=== PATIENT | male | born 1950 | race Caucasian/White ===

== ENCOUNTER 2020-03-10 23:15 | Inpatient (IN) | payer MEDICARE, OTHER ==
[~2020-03-10] VITALS: Ht 175.3 cm; Wt 95.3 kg
[2020-03-10] MEDS ORDERED: LORAZEPAM INJ 2 MG/ML VIAL IV ONE (23:30)
[2020-03-10] MEDS ORDERED: LORAZEPAM INJ 2 MG/ML VIAL ONE (23:49)
--- NOTE | 2020-03-10 23:59 | NUR ---
PT SENT FROM [facility] FOR AMS AND WEAKNESS. PT AAOX2, RESPIRATIONS EVEN AND UNLABORED ON RA W/ NAD NOTED. PT CONNECTED TO THE INSPECTOR MACHINE CUT GLASS AND POX. AWAITING FOR MD GUTHRIE
--- NOTE | 2020-03-11 00:04 | NUR ---
WIRE WRAPPING MACHINE OPERATOR AT BEDSIDE FOR BLOODDRAW.
[2020-03-11] MEDS ORDERED: LORAZEPAM INJ 2 MG/ML VIAL ONE ×2 (00:26→01:05)
[2020-03-11 00:30] LABS: BASOPHILS % (AUTO) 0.1 % (0.0-2.0); HEMATOCRIT 48 % (39-51); HEMOGLOBIN 15.1 g/dL (13.5-17.5); LYMPHOCYTES % (AUTO) 4.7 % (20.0-44.0); MEAN CORPUSCULAR HGB CONC 32 g/dl (31.0-36.0); MEAN CORPUSCULAR VOLUME 95 fL (80-96); MONOCYTES # (AUTO) 1.8 /CMM (0.1-1.30); MONOCYTES % (AUTO) 8.4 % (2.0-12.0); NEUTROPHILS % (AUTO) 86.8 % (43.0-81.0); PLATELET COUNT (AUTO) 363 /CMM (150-450); RED BLOOD CELL COUNT(AUTO) 5.08 MIL/uL (4.5-6.0); WHITE BLOOD COUNT (AUTO) 21.9 K/uL (4.3-11.0)
[2020-03-11] MEDS ORDERED: LORAZEPAM INJ 2 MG/ML VIAL IV ONE ×2 (00:30→01:30)
[2020-03-11] MEDS ORDERED: IV NS 0.9% 1,000 ML BAG IV ONE (00:30)
[2020-03-11 00:38] LABS: ALANINE AMINOTRANSFERASE 11 U/L (12-78); ALBUMIN 2.4 g/dL (3.4-5.0); ALCOHOL, BLOOD < 3 mg/dL (0-0); ALKALINE PHOSPHATASE 156 U/L (46-116); ASPARTATE AMINOTRANSFERASE 11 U/L (15-37); BILIRUBIN,DIRECT 1.3 mg/dL (0.0-0.2); BILIRUBIN,TOTAL 1.8 mg/dL (0.2-1.0); CALCIUM, SERUM 9.4 mg/dL (8.5-10.1); CARBON DIOXIDE 24 mmol/L (21-32); CHLORIDE 116 mmol/L (98-107); CREATININE 0.9 mg/dL (0.6-1.3); GLUCOSE 107 mg/dL (74-106); POTASSIUM 3.5 mmol/L (3.5-5.1); SODIUM SERUM 153 mmol/L (136-145); TOTAL PROTEIN, SERUM 6.9 g/dL (6.4-8.2); UREA NITROGEN, BLOOD 19 mg/dL (7-18)
[2020-03-11 00:41] LABS: ACETAMINOPHEN 0 ug/ml (10-30); SALICYLATE < 0.2 mg/dL (2.8-20.0)
--- NOTE | 2020-03-11 00:48 | NUR ---
COVID SWAB COLLECTED AND SENT TO THE LAB.
[2020-03-11] MEDS ORDERED: ACETAMINOPHEN 650 MG/SUPP.RECT RC ONE ×2 (00:57→01:00)
--- NOTE | 2020-03-11 01:03 | NUR ---
URINE COLLECTED. SENT TO LAB
--- NOTE | 2020-03-11 01:43 | NUR ---
PATIENT RETURNED FROM CT.
[2020-03-11 02:06] LABS: APPEARANCE,URINE CLEAR (CLEAR); BILIRUBIN,URINE MODERATE (NEGATIVE); BLOOD, URINE NEGATIVE Ery/uL (NEGATIVE); COLOR,URINE YELLOW (YELLOW); KETONES,URINE NEGATIVE (NEGATIVE); LEUKOCYTE ESTERASE ,URINE NEGATIVE (NEGATIVE); NITRITE, URINE NEGATIVE (NEGATIVE); PROTEIN,URINE TRACE mg/dl (NEGATIVE); UGLUCOSE NEGATIVE (NEGATIVE); UROBILINOGEN,URINE >=8.0 EU/dL (0.2)
[2020-03-11 02:17] LABS: BACTERIA,URINE Many /HPF (None Seen); RBC,URINE 0-2 /HPF (0-2)
[2020-03-11 02:18] LABS: SQUAMOUS EPITHELIAL CELL,UR Rare /HPF (None Seen)
--- NOTE | 2020-03-11 02:30 | NUR ---
ASSIGNED TO 202
--- NOTE | 2020-03-11 03:16 | NUR ---
DR. ADAN SPEAKING WITH DR. ALANIZ REGARDING ADMISSION
--- NOTE | 2020-03-11 03:18 | NUR ---
PATIENT'S RECTAL TEMPERATURE IS AT 100.4. MD IS NOTIFIED. ICE PACK APPLIED TO THE PATIENT.
[2020-03-11] MEDS ORDERED: ONDANSETRON HCL/PF 4 MG/2 ML VIAL IVP PRN (04:00)
--- NOTE | 2020-03-11 04:03 | NUR ---
REPORT GIVEN TO LEESA BOX FOR WES.
[2020-03-11 04:08] VITALS: BP 137/79
--- NOTE | 2020-03-11 04:15 | NUR ---
PATIENT TAKEN TO ASSIGNED ROOM.
[2020-03-11] MEDS: LORAZEPAM INJ 2 MG/ML VIAL IV PRN ×2 (05:00→20:54)
[2020-03-11] MEDS: IV D5/0.45 NACL 1,000 ML IV PRN ×2 (05:00→14:30)
--- NOTE | 2020-03-11 06:02 | NUR ---
rECIEVED AT 04:45 ALERT TO SELF, BUT ATTEMPTING TO GRAB AT THE NURSE AND SMILING, NO TEETH NO DENTURE MAKING GRUNTING NOISES, STATED HE HAD TO GO "pee" BUT WAS UNABLE TO TEXT THE md AND ASKED TO GET AN ORDER TO [facility] CATH WAITING FOR HIM TO ANSWER. PATIENT HAS A STAGE 2 ON THE COCCYS AND HIS IS DIRTY SKIN SCAB ON HIS SHINS AND ARMS DIRTY FEET AND 2+ EDEMA ON HIS FEET WILL MONITOR
[2020-03-11 06:23] VITALS: BP 137/79
--- NOTE | 2020-03-11 07:25 | NUR ---
RN NOTES RECEIVED PT IN BED, AWAKE, A/O X1, MUMBLES. PT ON SUPPLEMENTARY OXYGEN AT 2LPM VIA NC, WITH NO ACUTE RESPIRATORY DISTRESS NOTED. PT NOT EXHIBITING ANY PAIN OR DISCOMFORT AT THIS TIME. ON TELEMONITORING ST 110. IVF D5 1/2 NS AT TO RIGHT HAND G22, INTACT AND FLUID INFUSING WELL. PT KEPT COMFORTABLE. PT'S BED IN LOWEST, LOCKED POSITION WITH SRX3. CALL LIGHT KEPT WITHIN REACH. WILL CONTINUE PLAN OF CARE.
[2020-03-11] MEDS ORDERED: QUET25TA PO (07:48)
[2020-03-11] MEDS ORDERED: THIA100T88 PO (07:48)
[2020-03-11] MEDS ORDERED: APIX2.5T PO (07:48)
[2020-03-11] MEDS ORDERED: CARV3.122 PO (07:48)
[2020-03-11] MEDS ORDERED: ATOR10TA PO (07:48)
[2020-03-11] MEDS ORDERED: FOLI0.4T2 PO (07:48)
[2020-03-11] MEDS ORDERED: ASPI-1169 PO (07:48)
[2020-03-11] MEDS ORDERED: TAMS-12 PO (07:48)
[2020-03-11] MEDS ORDERED: DIVA500T2 PO (07:48)
[2020-03-11] MEDS: FOLIC ACID 1 MG TABLET PO SCH (09:00)
[2020-03-11] MEDS: THIAMINE HCL 100 MG TABLET PO SCH (09:00)
[2020-03-11] MEDS: PANTOPRAZOLE 40 MG VIAL IV SCH (09:19)
[2020-03-11] MEDS: ENOXAPARIN SODIUM 40 MG/0.4 ML DISP.SYRIN SQ SCH (09:20)
--- NOTE | 2020-03-11 10:50 | NUR ---
RN NOTES SEEN AND EVALUATED BY DR. SLAUGHTER/FREDDIE. PLANNING TO CHANGE THE IVF INFUSING BUT HE STATED HE'LL PUT THE ORDER IN HIMSELF.
--- NOTE | 2020-03-11 19:21 | NUR ---
RN NOTES PT REMAINS IN BED, AWAKE, A/O X1. PT ON SUPPLEMENTARY OXYGEN AT 2LPM VIA NC, WITH NO ACUTE RESPIRATORY DISTRESS NOTED. PT NOT EXHIBITING ANY PAIN OR DISCOMFORT AT THIS TIME. ON TELEMONITORING ST 117. IVF D5 1/2 NS AT TO RIGHT HAND G22, INTACT AND FLUID INFUSING WELL. PT KEPT COMFORTABLE. ALL NEEDS AND CARE ATTENDED. PT'S BED IN LOWEST, LOCKED POSITION WITH SRX3. CALL LIGHT KEPT WITHIN REACH. ENDORSED TO INCOMING NIGHT NURSE FOR WES.
--- NOTE | 2020-03-11 19:35 | NUR ---
SOIL CONSERVATION TEACHER OPENING NOTES PATIENT AWAKE IN BED. A/OX1; SPEECH GARBLED. ON 2L NC; NO S/S OF ACUTE RESPIRATORY; BREATHING IS EVEN AND UNLABORED; CONTINUOUS SPO2 READING 100%. NO S/S OF PAIN NOTED. TELE MONITOR READING SINUS TACH WITH BBBS AND PVCS, HEART RATE 113. IV PRESENT ON RIGHT HAND, SIZE 20, INTACT & PATENT WITH D5 1/2 NS RUNNING AT 100 ML/HR. CONTACT/DROPLET PRECAUTIONS IN PLACE FOR R/O COVID; RESULTS PENDING. SAFETY MEASURES IN PLACE AND PATIENT'S NEEDS MET. BED LOCKED, ALARM ON, SIDE RAILS X3, HOB ELEVATED, CALL LIGHT WITHIN REACH. WILL CONTINUE TO MONITOR.
[2020-03-11 20:00] VITALS: BP 136/55
--- NOTE | 2020-03-11 20:54 | NUR ---
FINANCIAL DIRECTOR NOTES PATIENT PULLING AT IV LINE/MACHINE AND TRYING TO GET OUT OF BED. UNABLE TO REDIRECT PATIENT; A/OX1 AND CONFUSED. PRN ATIVAN 1MG IV ADMINISTERED. VITAL SIGNS - BP: 136/55, HR: 115, SPO2 100%. CALL LIGHT WITHIN REACH. WILL CONTINUE TO MONITOR.
[2020-03-12] VITALS: BP 128/83
[2020-03-12] MEDS: IV D5/0.45 NACL 1,000 ML IV PRN (00:41)
[2020-03-12] MEDS: LORAZEPAM INJ 2 MG/ML VIAL IV PRN ×5 (03:11→23:07)
--- NOTE | 2020-03-12 03:11 | NUR ---
DISTRIBUTION SPEC NOTES PATIENT CONTINUING TO PULL AT IV AND CLIMB OUT OF BED. UNABLE TO REDIRECT PATIENT; A/OX1; CONFUSED AND AGITATED. PRN ATIVAN 1MG IV ADMINISTERED. SAFETY MEASURES IN PLACE AND PATIENT'S NEEDS MET. WILL CONTINUE TO MONITOR.
[2020-03-12 04:00] VITALS: BP 125/80
--- NOTE | 2020-03-12 06:37 | NUR ---
CLINICAL CONSULTANT CLOSING NOTES PATIENT AWAKE IN BED. A/OX1. ON 2L NC; NO S/S OF ACUTE RESPIRATORY; BREATHING IS EVEN AND UNLABORED; CONTINUOUS SPO2 READING 100%. NO S/S OF PAIN NOTED. TELE MONITOR READING SINUS TACH, HEART RATE 103. IV PRESENT ON LEFT FA, SIZE 22, INTACT & PATENT WITH D5 1/2 NS RUNNING AT 100 ML/HR. SAFETY MEASURES IN PLACE AND PATIENT'S NEEDS MET. BED LOCKED, ALARM ON, SIDE RAILS X3, HOB ELEVATED, CALL LIGHT WITHIN REACH. WILL ENDORSE TO DAY SHIFT RN PLAN OF CARE.
[2020-03-12 08:00] VITALS: BP 155/70
--- NOTE | 2020-03-12 08:00 | NUR ---
rn notes received patient in the bed on isolation ,tele [id number]. Patient a/o x1, irritable, confused, and restless, delirium. on o22lnc, total care. infusing D51/2 ns at 100 ml hr on left fa. patient NPO because of sedated, aspiration precaution monitoring. iv push mediation administered. Patient assist turn and reposition q 2 hr. call bel, and bed alarm on. will continued monitoring.
[2020-03-12] MEDS: PANTOPRAZOLE 40 MG VIAL IV SCH (08:22)
[2020-03-12] MEDS: ENOXAPARIN SODIUM 40 MG/0.4 ML DISP.SYRIN SQ SCH (08:23)
--- NOTE | 2020-03-12 08:23 | NUR ---
RN NOTES RECEIVED PATIENT IN THE BED, CONFUSED, IRRITABLE TRYING TO GET OUT OF BED, DELUSIONAL, ALCOHOL WITHDRAWAL, HARD TO FOLLOW DIRECTION, ADMINISTERED ATIVAN 1 MG/ML IV PUSH , V/S TAKEN BP 155/88, P-105, CALL LIGHT NEAR TO THE PATIENT BED ALARM ON, SAFETY PRECAUTION MAINTAINED ALL THE TIME.
[2020-03-12 08:28] LABS: BASOPHILS % (AUTO) 0.2 % (0.0-2.0); HEMATOCRIT 52 % (39-51); HEMOGLOBIN 16.2 g/dL (13.5-17.5); LYMPHOCYTES # (AUTO) 0.9 /CMM (0.8-4.8); LYMPHOCYTES % (AUTO) 3.9 % (20.0-44.0); MEAN CORPUSCULAR HGB CONC 31 g/dl (31.0-36.0); MEAN CORPUSCULAR VOLUME 94 fL (80-96); MONOCYTES # (AUTO) 1.9 /CMM (0.1-1.30); MONOCYTES % (AUTO) 8.5 % (2.0-12.0); NEUTROPHILS # (AUTO) 19.3 /CMM (1.8-8.9); NEUTROPHILS % (AUTO) 87.4 % (43.0-81.0); PLATELET COUNT (AUTO) 283 /CMM (150-450); RED BLOOD CELL COUNT(AUTO) 5.49 MIL/uL (4.5-6.0); WHITE BLOOD COUNT (AUTO) 22.1 K/uL (4.3-11.0)
[2020-03-12 08:48] LABS: ALBUMIN 2.2 g/dL (3.4-5.0); BILIRUBIN,TOTAL 1.8 mg/dL (0.2-1.0); CALCIUM, SERUM 9.3 mg/dL (8.5-10.1); CREATININE 0.8 mg/dL (0.6-1.3); MAGNESIUM 2.5 mg/dL (1.8-2.4); PHOSPHORUS 2.3 mg/dL (2.5-4.9); POTASSIUM 3.6 mmol/L (3.5-5.1); TOTAL PROTEIN, SERUM 6.8 g/dL (6.4-8.2)
[2020-03-12 09:00] LABS: THYROID STIMULATING HORMONE 4.205 uIU/mL (0.358-3.74)
[2020-03-12] MEDS: FOLIC ACID 1 MG TABLET PO SCH (09:00)
[2020-03-12] MEDS: THIAMINE HCL 100 MG TABLET PO SCH (09:00)
[2020-03-12] MEDS ORDERED: POTASSIUM PHOSPHATE MM 7.5 MMOL in IV NS 0.9% 100 ML IV SCH (13:00)
[2020-03-12] MEDS: IV D5W 1,000 ML IV SCH ×2 (13:11→23:02)
--- NOTE | 2020-03-12 14:00 | NUR ---
rn notes patient still sedated, easily get irritable, hitting. v/s wnl, aspiration precaution continued monitoring.
[2020-03-12 18:10] VITALS: BP 120/82
--- NOTE | 2020-03-12 18:14 | NUR ---
rn notes administered Ativan 1 mg /ml iv push for anxiety, trying get out of bed bp 120/82, p-112. continued monitoring.
--- NOTE | 2020-03-12 19:00 | NUR ---
RN NOTES PATIENT MORE CALM AT THIS TIME, STILL NPO, MEDICATION WERE ADMINISTERED FOR ANXIETY EFFECTIVE, TRYING TO GET OUT OF BED, DELUSIONAL, GETTING IRRITABLE EASILY. BED ALARM AND MIGUELITO LIGHT ON. ENDORSED ONCOMING NURSE FOLLOW WES.
--- NOTE | 2020-03-12 19:10 | NUR ---
HOOP CUTTER NOTES RECEIVED PT IN BED AND RESTING. PT CONFUSING. RESPIRATIONS EVEN AND UNLABORED WITH CONTINUOUS PULSE OX ON AT 100%. NO S/S OF PAIN AT THIS TIME. PT NOTED WITH LWRIST #22G PATENT AND INTACT INFUSING D5@100CC/HR. SAFETY MEASURES IN PLACE. PT NOTED WITH HEALING SCABS ON BILATERAL LEGS WELL REDNESS ON BILATERAL FEET. CALL LIGHT WITHIN REACH. WILL CONTINUE TO MONITOR.
--- NOTE | 2020-03-12 22:00 | NUR ---
rn telemetry notes attempted to take pictures, pt combative and hitting. will attempt again when less agitated. will continue to monitor.
--- NOTE | 2020-03-13 04:00 | NUR ---
telecommunication operator notes attempted to take photos and pt refused. will continue to monitor.
[2020-03-13 07:28] LABS: BASOPHILS # (AUTO) 0.1 /CMM (0.0-0.2); BASOPHILS % (AUTO) 0.7 % (0.0-2.0); HEMATOCRIT 50 % (39-51); HEMOGLOBIN 15.6 g/dL (13.5-17.5); LYMPHOCYTES # (AUTO) 1.2 /CMM (0.8-4.8); LYMPHOCYTES % (AUTO) 5.9 % (20.0-44.0); MEAN CORPUSCULAR HGB CONC 32 g/dl (31.0-36.0); MEAN CORPUSCULAR VOLUME 94 fL (80-96); MONOCYTES # (AUTO) 1.7 /CMM (0.1-1.30); MONOCYTES % (AUTO) 8.5 % (2.0-12.0); NEUTROPHILS # (AUTO) 17.5 /CMM (1.8-8.9); NEUTROPHILS % (AUTO) 84.9 % (43.0-81.0); PLATELET COUNT (AUTO) 198 /CMM (150-450); RED BLOOD CELL COUNT(AUTO) 5.29 MIL/uL (4.5-6.0); WHITE BLOOD COUNT (AUTO) 20.5 K/uL (4.3-11.0)
--- NOTE | 2020-03-13 07:38 | NUR ---
GLASS FITTER OPENING NOTES RECEIVED PATIENT IN BED, AWAKE, A/O X1, CONFUSED. PATIENT ON OXYGEN THERAPY AT 2 LPM VIA NASAL CANNULA; BREATHING IS EVEN AND UNLABORED; NO SOB NOTED. NO S/S OF PAIN SUCH FACIAL GRIMACING, MOANING OR GUARDING. LFA G # 22 IV ACCESS PRESENT AND INTACT RUNNING D5W @ 100 MLS/HR. SAFETY PRECAUTIONS IN PLACE; BED IN LOW POSITION AND LOCKED, RAILS UP X2, CALL LIGHT WITHIN REACH. WILL CONTINUE TO MONITOR PATIENT.
[2020-03-13 08:00] VITALS: BP 120/78
[2020-03-13 08:01] LABS: CREATININE 0.9 mg/dL (0.6-1.3); MAGNESIUM 2.6 mg/dL (1.8-2.4); PHOSPHORUS 3.1 mg/dL (2.5-4.9); POTASSIUM 3.1 mmol/L (3.5-5.1)
[2020-03-13] MEDS: THIAMINE HCL 100 MG TABLET PO SCH (09:00)
[2020-03-13] MEDS: FOLIC ACID 1 MG TABLET PO SCH (09:00)
[2020-03-13] MEDS: PANTOPRAZOLE 40 MG VIAL IV SCH (09:12)
[2020-03-13] MEDS: ENOXAPARIN SODIUM 40 MG/0.4 ML DISP.SYRIN SQ SCH (09:12)
[2020-03-13 09:31] LABS: BAND % (MANUAL) 2 % (0.0-5.0); LYMPHOCYTES % (MANUAL) 8 % (16-48); MONOCYTES % (MANUAL) 12 % (0-11.0); NEUTROPHILS % (MANUAL) 78 (42-76)
[2020-03-13] MEDS: IV D5W 1,000 ML IV PRN ×2 (09:52→19:59)
[2020-03-13] MEDS: POTASSIUM CL. PREMIX PERIPHER. 50 ML IV SCH ×4 (11:21→15:18)
[2020-03-13] MEDS: LORAZEPAM INJ 2 MG/ML VIAL IV PRN ×2 (14:12→18:21)
--- NOTE | 2020-03-13 17:00 | NUR ---
SALES LEDGER ADMINISTRATOR NOTES TRIED TO TAKE PHOTOS OF THE PATIENT. PATIENT COMBATIVE, THROWING FISTS, AND DOES NOT LET US TAKE PICS.
--- NOTE | 2020-03-13 18:40 | NUR ---
ASSOCIATE FINANCIAL ADVISOR NOTES PATIENTS HEART RATE 121. ALL OTHER VITALS ARE NORMAL; O2 IS 100, FLUIDS ARE RUNNING. ATIVAN GIVEN. PATIENT DENIES PAIN. MD NOTIFIED. WILL CONTINUE TO MONITOR
--- NOTE | 2020-03-13 19:15 | NUR ---
RAILWAY SIGNAL OPERATOR CLOSING NOTES PATIENT IN BED, AWAKE, A/O X1, CONFUSED DURING THE SHIFT. PATIENT ON OXYGEN THERAPY AT 2 LPM VIA NASAL CANNULA; BREATHING IS EVEN AND UNLABORED; NO SOB NOTED. PATIENT DENIES PAIN. GLOBAL COMPENSATION ANALYST WITH A CURRENT READING OF SINUS TACHY 113; MD AWARE. LFA G # 22 IV ACCESS PRESENT AND INTACT RUNNING D5W @ 100 MLS/HR. POTASSIUM REPLACED WITH 4 BAGS OF POTASSIUM. ALL NEEDS ATTENDED TO THROUGHOUT THE DAY. SAFETY PRECAUTIONS IN PLACE; BED IN LOW POSITION AND LOCKED, RAILS UP X2, CALL LIGHT WITHIN REACH. WILL ENDORSE TO MAJOR GIFTS DIRECTOR NURSE.
--- NOTE | 2020-03-13 19:45 | NUR ---
HYDRAULIC PRESS SERVICER OPENING NOTES RECEIVED PATIENT IN BED ALERT AND ORIENTED X 1 CONFUSED AND IRRITABLE, KEPT ON MOVING IN BED. BREATHING REGULAR AND UNLABORED ON OXYGEN AT 2L/MIN VIA NASAL CANNULA, LATEST SPO2 100%. LEFT FOREARM IV LINE SEEN WITH REDNESS AND SWELLING, REMOVED AND APPLIED DRY DRESSING. ON CARDIAC MONITORING WITH SINUS TACHYCARDIA AT 114bpm. NO S/S OF PAIN/DISCOMFORT NOTED AT THIS TIME. BED LOW AND LOCKED ON SEMI FOWLERS POSITION, CALL LIGHT IN REACH. BED ALARM ON. WILL CONTINUE TO MONITOR.
[2020-03-13] MEDS: PIPERACILLIN /TAZOBACTAM 3.375 G in IV D5W 50 ML IV SCH (19:58)
[2020-03-13 20:00] VITALS: BP 124/68
--- NOTE | 2020-03-13 20:00 | NUR ---
FLAT SHEET MAKER NOTES IV LINE REINSERTED ON RIGHT FOREARM G 22, FLUSHING WELL WITH GOOD BLOOD BACK FLOW. WILL CONTINUE TO MONITOR.
[2020-03-14] VITALS: BP 142/68
[2020-03-14] MEDS: LORAZEPAM INJ 2 MG/ML VIAL IV PRN ×3 (01:41→20:05)
[2020-03-14] MEDS: PIPERACILLIN /TAZOBACTAM 3.375 G in IV D5W 50 ML IV SCH ×5 (01:41→23:59)
[2020-03-14 04:00] VITALS: BP 126/71
--- NOTE | 2020-03-14 05:05 | NUR ---
ORTHOPEDIC PODIATRIST NOTES IV ZOSYN DOSE FOR 6AM NOT GIVEN, FREQUENCY TIME CHANGED BY PHARMACY. LAST DOSE INFUSED AT 2AM NEXT DOSE DUE 12NOON. WILL ENDORSE ACCORDINGLY.
[2020-03-14] MEDS: IV D5W 1,000 ML IV PRN ×2 (06:32→19:07)
--- NOTE | 2020-03-14 06:55 | NUR ---
PICTURE FRAME MAKER CLOSING NOTES PATIENT IN BED ALERT AND ORIENTED X 1. AFEBRILE WITH NO S/S OF DISTRESS OBSERVED. RIGHT FOREARM G22 IV LINE PATENT AND INFUSING WELL. MAINTAINED ON CARDIAC MONITORING WITH SINUS TACHYCARDIA AT 110bpm. NO S/S OF PAIN/DISCOMFORT NOTED THE WHOLE SHIFT. BED LOW AND LOCKED ON SEMI FOWLERS POSITION, CALL LIGHT IN REACH. BED ALARM ON. WILL ENDORSE TO MORNING SHIFT FOR WES.
--- NOTE | 2020-03-14 07:30 | NUR ---
RN OPENING NOTES RECEIVED PATIENT IN BED ALERT AND ORIENTED X 1. VERY CONFUSED. MUMBLES. NOTED TO BE VERY RESTLESS, HE MOVES AROUND A LOT IN BED. AND UPON ROUNDS, HE WAS GRABBING THE IV POLE AND ATTEMPTING TO PULL OUT THE IV LINE. PROVIDED PT WITH A CALM ENVIRONMENT. AND REPOSITIONED FOR COMFORT. PT IS AFEBRILE WITH NO S/S OF DISTRESS OBSERVED SATURATING WELL ON 2L OF O2 VIA NC. IV ACCESS NOTED ON RIGHT FOREARM G22 IV LINE PATENT AND INFUSING WELL. NO S/S OF INFECTION OR INFILTRATION NOTED. MAINTAINED ON CARDIAC MONITORING WITH SINUS TACHYCARDIA AT 1.8bpm. NO S/S OF PAIN/DISCOMFORT NOTED. SAFETY PRECAUTIONS IN PLACE. BED LOW AND LOCKED ON SEMI FOWLERS POSITION, CALL LIGHT IN REACH. BED ALARM ON. WILL CONT TO MONITOR
[2020-03-14 08:00] VITALS: BP 121/65
[2020-03-14] MEDS: PANTOPRAZOLE 40 MG VIAL IV SCH (08:11)
[2020-03-14] MEDS: ENOXAPARIN SODIUM 40 MG/0.4 ML DISP.SYRIN SQ SCH (08:13)
[2020-03-14] MEDS: THIAMINE HCL 100 MG TABLET PO SCH (08:14)
[2020-03-14] MEDS: FOLIC ACID 1 MG TABLET PO SCH (08:14)
[2020-03-14 09:28] LABS: BILIRUBIN,TOTAL 1.9 mg/dL (0.2-1.0); CALCIUM, SERUM 8.2 mg/dL (8.5-10.1); CREATININE 1.2 mg/dL (0.6-1.3); MAGNESIUM 2.4 mg/dL (1.8-2.4); PHOSPHORUS 3.5 mg/dL (2.5-4.9); TOTAL PROTEIN, SERUM 6.4 g/dL (6.4-8.2)
[2020-03-14 09:51] LABS: BASOPHILS # (AUTO) 0.1 /CMM (0.0-0.2); BASOPHILS % (AUTO) 0.6 % (0.0-2.0); HEMATOCRIT 47 % (39-51); HEMOGLOBIN 14.9 g/dL (13.5-17.5); LYMPHOCYTES # (AUTO) 0.8 /CMM (0.8-4.8); LYMPHOCYTES % (AUTO) 4.3 % (20.0-44.0); MEAN CORPUSCULAR HGB CONC 32 g/dl (31.0-36.0); MEAN CORPUSCULAR VOLUME 93 fL (80-96); MONOCYTES # (AUTO) 1.3 /CMM (0.1-1.30); MONOCYTES % (AUTO) 6.4 % (2.0-12.0); NEUTROPHILS # (AUTO) 17.2 /CMM (1.8-8.9); NEUTROPHILS % (AUTO) 88.7 % (43.0-81.0); PLATELET COUNT (AUTO) 146 /CMM (150-450); RED BLOOD CELL COUNT(AUTO) 5.07 MIL/uL (4.5-6.0); WHITE BLOOD COUNT (AUTO) 19.5 K/uL (4.3-11.0)
[2020-03-14] MEDS: ASPIRIN 81 MG TAB.CHEW PO SCH (10:00)
[2020-03-14] MEDS: POTASSIUM CL. PREMIX PERIPHER. 50 ML IV SCH ×2 (10:14→11:16)
--- NOTE | 2020-03-14 10:39 | NUR ---
WOUND CARE CONSULT: REVIEWED CHART, NURSING DOCOMENTATION AND PHOTOS WHICH INDICATE FULL THICKNESS SACRAL WOUND PRESENT ON ADMISSION. RECOMMEND SURGICAL CONSULT. DR MONROE NOTIFIED OF CONSULT REQUEST. ISOFLEX LOW AIRLOSS BED TO BE PLACED. RECOMMENDATIONS MADE FOR SKIN PROTECTION. DISCUSSED WITH NURSING STAFF. MD IN AGREEMENT WITH PLAN OF CARE.
[2020-03-14] MEDS ORDERED: Z GUARD REMEDY 2 OZ OINT TP PRN (11:00)
--- NOTE | 2020-03-14 11:00 | NUR ---
SWALLOW EVAL ST WA HERE TO DO SWALLOW EVAL. HOWEVER, PT DID NOT PASS D/T SEVERE CONFUSION PER ST
--- NOTE | 2020-03-14 11:10 | NUR ---
LABS NOTIFIED ADRIAN KLINE REGARDING LABS, CBC, CMP AND PROCALCITONIN RESULTS. SAID SHE WILL LOOK AT IT. NNO GIVEN.
[2020-03-14 12:00] VITALS: BP 101/67
--- NOTE | 2020-03-14 12:15 | NUR ---
CHEST XRAY RELAYED CHEST XRAY RESULTS TO ADRIAN KLINE. NNO GIVEN.
[2020-03-14] MEDS: Z GUARD REMEDY 2 OZ OINT TP SCH (12:28)
[2020-03-14 12:53] LABS: LYMPHOCYTES % (MANUAL) 5 % (16-48); MONOCYTES % (MANUAL) 7 % (0-11.0); NEUTROPHILS % (MANUAL) 88 (42-76)
[2020-03-14 15:14] LABS: URINE TOTAL PROTEIN 45.7 mg/dL (0-11.9)
[2020-03-14 16:00] VITALS: BP 107/73
--- NOTE | 2020-03-14 16:00 | NUR ---
TRANSFER TO [facility] [[email or web address]] YFN BOX WILL BE ASSUMING CARE FOR THIS PT. PT IN STABLE CONDITION. REPORT GIVEN TO YFN BOX WHO WILL BE MOVING PT TO [facility] [[email or web address]]
--- NOTE | 2020-03-14 16:01 | NUR ---
PATIENT IN STABLE CONDITION. TRANSFERRED FROM 202 TO 325-2. NOT IN ANY FORM OF DISTRESS. NO SOB. NO S/S OF PAIN OR DISCOMFORT AT THIS TIME. ON CONT PULSE OX MONITOR, VSS. IV ACCESS INTACT AND PATENT. KEPT PATIENT SAFE AND COMFORTABLE. BED IN LOW/LOCKED POSITION. SIDERAILS UP, CALL LIGHT IN REACH. BED ALARM ON. WILL CONT TO MONITOR ACCORDINGLY.
[2020-03-14] MEDS: CARVEDILOL 3.125 MG TABLET PO SCH (17:00)
[2020-03-14] MEDS ORDERED: APIXABAN 2.5 MG TABLET PO SCH (17:00)
[2020-03-14] MEDS ORDERED: HYDROGEL DRESSING 90 GM TUBE TP SCH (18:30)
--- NOTE | 2020-03-14 18:56 | NUR ---
PATIENT IN STABLE CONDITION. ALL NEEDS ATTENDED AND PROVIDED. KEPT PATIENT SAFE AND COMFORTABLE. BED IN LOW/LOCKED PSOTIION. SIDERAILS UP. BED ALARM ON. CALL LIGHT IN REACH. WILL ENDORSED TO NIGHT NURSE ACCORDINGLY.
[2020-03-14 19:56] LABS: CREATININE 1.3 mg/dL (0.6-1.3)
--- NOTE | 2020-03-14 20:15 | NUR ---
TELERN RESTLESS, TRASHING SELF AROUND BED, TRYING TO GET OUT OF BED. V/S STABLE. ATIVAN 1MG IVP ADMINISTERED. ON CONTINOUS PULSE OX SATURATING 100%. SR TO ST ON THE MONITOR. CLOSELY WATCHED.
[2020-03-14] MEDS: HYDROGEL DRESSING 90 GM TUBE TP SCH (20:33)
[2020-03-14] MEDS: DIVALPROEX SODIUM 500 MG TABLET.DR PO SCH (20:33)
[2020-03-14] MEDS: QUETIAPINE FUMARATE 100 MG TABLET PO SCH (20:34)
--- NOTE | 2020-03-14 20:34 | NUR ---
TELERN HS CARE DONE, SACRAL WOUND CARE DONE, CURASOL GEL OVER AREA COVERED WITH MEPILEX. REPOSITIONED FOR COMFORT. CONTINUED MONITORING.
[2020-03-14 20:54] VITALS: BP 116/68
[2020-03-15 00:19] VITALS: BP 104/63
--- NOTE | 2020-03-15 01:35 | NUR ---
TELERN AWAKE, TRYING TO GET OOB. FREQ REPOSITIONED. UNABLE TO FOLLOW INSTRUCTIONS. TOTALLY BATHED, KEPT COMFORTABLE.PRESENT IVF INFUSING WELL VIA RIGHT FA. CONTINUED
--- NOTE | 2020-03-15 04:00 | NUR ---
TELERN EASILY DESATURATES WHEN RESTLESS. MAINTAINED 02 AT 2 TO 3 L VIA NC. ATIVAN 1 MG IVP ADMINISTERED. TOTAL BEDCHANGE VOIDED LARGE AMOUNT OF CLEAR URINE. REPOSITIONED, KEPT DRY AND CLEAN. FREQ REORIENTED.
[2020-03-15] MEDS: LORAZEPAM INJ 2 MG/ML VIAL IV PRN ×2 (04:08→11:58)
--- NOTE | 2020-03-15 04:40 | NUR ---
TELERN SLEEPING APPEARS COMFORTABLE SATURATION 100% FOR NOW.
[2020-03-15 04:50] VITALS: BP 114/84
[2020-03-15] MEDS: PIPERACILLIN /TAZOBACTAM 3.375 G in IV D5W 50 ML IV SCH ×4 (06:11→23:53)
[2020-03-15] MEDS: IV D5W 1,000 ML IV PRN ×2 (06:27→21:21)
--- NOTE | 2020-03-15 06:41 | NUR ---
TELERN REMAINS UNCHANGED, IVF CONTINUED. FOR REPEAT SWALLOW EVAL TODAY. NPO
--- NOTE | 2020-03-15 07:34 | NUR ---
DEGREASING WHEEL OPERATOR OPENING NOTES BEDSIDE ENDORSEMENT DONE. PATIENT IS IN BED SLEEPING, RESPONSIVE TO VERBAL AND TACTILE SENSATIONS. A/O X1. NOT IN ACUTE DISTRESS. BREATHING EVEN AND UNLABORED. ON TELE MONITORING, SR WITH PVC, HR IN THE MID 80'S, NO CARDIAC DISTRESS NOTED. IV SITE ON RFA INTACT AND PATENT. ON NPO STATUS. SAFETY PRECAUTIONS IN PLACE: BED ON LOWEST AND LOCKED POSITION, SR UP X2, CALL LIGHT W/IN REACH. WILL CONTINUE TO MONITOR.
[2020-03-15 08:00] VITALS: BP 122/69
[2020-03-15 08:37] LABS: BASOPHILS % (AUTO) 0.1 % (0.0-2.0); EOSINOPHILS % (AUTO) 0.3 % (0.0-6.0); HEMATOCRIT 44 % (39-51); HEMOGLOBIN 13.8 g/dL (13.5-17.5); LYMPHOCYTES # (AUTO) 0.8 /CMM (0.8-4.8); LYMPHOCYTES % (AUTO) 4.8 % (20.0-44.0); MEAN CORPUSCULAR HGB CONC 32 g/dl (31.0-36.0); MEAN CORPUSCULAR VOLUME 94 fL (80-96); MONOCYTES % (AUTO) 5.8 % (2.0-12.0); NEUTROPHILS # (AUTO) 14.9 /CMM (1.8-8.9); PLATELET COUNT (AUTO) 127 /CMM (150-450); RED BLOOD CELL COUNT(AUTO) 4.67 MIL/uL (4.5-6.0); WHITE BLOOD COUNT (AUTO) 16.8 K/uL (4.3-11.0)
[2020-03-15] MEDS: THIAMINE HCL 100 MG TABLET PO SCH (09:00)
[2020-03-15] MEDS: TAMSULOSIN 0.4 MG CAP.SR.24H PO SCH (09:00)
[2020-03-15] MEDS: CARVEDILOL 3.125 MG TABLET PO SCH ×2 (09:00→16:54)
[2020-03-15] MEDS: ATORVASTATIN 10 MG TABLET PO SCH (09:00)
[2020-03-15] MEDS: FOLIC ACID 1 MG TABLET PO SCH (09:00)
[2020-03-15] MEDS: ASPIRIN 81 MG TAB.CHEW PO SCH (09:00)
[2020-03-15 09:41] LABS: CALCIUM, SERUM 8.6 mg/dL (8.5-10.1); CREATININE 1.4 mg/dL (0.6-1.3); MAGNESIUM 2.4 mg/dL (1.8-2.4); PHOSPHORUS 3.4 mg/dL (2.5-4.9)
[2020-03-15 09:48] LABS: POTASSIUM 2.7 mmol/L (3.5-5.1)
[2020-03-15] MEDS: Z GUARD REMEDY 2 OZ OINT TP SCH (09:57)
[2020-03-15] MEDS: HYDROGEL DRESSING 90 GM TUBE TP SCH (09:59)
[2020-03-15] MEDS: ENOXAPARIN SODIUM 40 MG/0.4 ML DISP.SYRIN SQ SCH (10:00)
[2020-03-15] MEDS: PANTOPRAZOLE 40 MG VIAL IV SCH (10:00)
--- NOTE | 2020-03-15 10:36 | NUR ---
RN NOTES RECEIVED CRITICAL RESULT FOR POTASSIUM 2.7 FROM LAB [facility] MIRANDA. INFORMED DR. VENEGAS, W/ ORDER TO GIVE 60MEQ OF POTASSIUM PO.
--- NOTE | 2020-03-15 10:46 | NUR ---
RN NOTES PT HAD SWALLOW REEVALUATION TODAY BY ST. PT PLACED ON PUREED DIET WITH HONEY THICK LIQUIDS BY ST. WILL MAINTAIN ASPIRATION PRECAUTIONS. WILL CONTINUE TO MONITOR PT.
[2020-03-15] MEDS ORDERED: POTASSIUM CHLORIDE 20 MEQ POWDER PACKET PO ONE (11:00)
[2020-03-15 12:00] VITALS: BP 132/75
--- NOTE | 2020-03-15 12:04 | NUR ---
RN NOTES PT NOTED VERY RESTLESS AND TRYING TO GET OUT OF BED. ALL SAFETY MEASURES KEPT IN PLACE. PRN ATIVAN 1MG/0.5ML IVP ADMINISTERED @ 1158. WILL CONTINUE TO MONITOR PT.
--- NOTE | 2020-03-15 15:05 | NUR ---
RN NOTES NOTED PATIENT'S IV ON RIGHT HAND TO BE LEAKING. NEW PERIPHERAL IV INSERTED ON LEFT HAND G#22, INTACT, PATENT, AND FLUSHING WELL. PREVIOUS SITE REMOVED. WILL CONTINUE TO MONITOR.
[2020-03-15 16:00] VITALS: BP 122/69
--- NOTE | 2020-03-15 18:13 | NUR ---
RN NOTES ULTRASOUND OF KIDNEYS DONE. US TECH NOTED PATIENT'S BLADDER W/ RESIDUAL OF 1600ML. DR. ALONZO MADE AWARE W/ ORDER FOR IN AND OUT STRAIGHT CATHETERIZATION X1. PATIENT VOIDED PRIOR CATHETERIZATION. PROCEDURE DONE INDICATED, W/ OUTPUT OF 800ML. WILL CONTINUE TO MONITOR.
--- NOTE | 2020-03-15 18:19 | NUR ---
RN NOTES PATIENT WAS SEEN BY ABHIJEET MCCARTHY NP, W/ ORDER FOR BLADDER SCAN Q8HRS AND STRAIGHT CATH NEEDED FOR RESIDUAL OF 300CC AND ABOVE, NOTED. WILL CONTINUE TO MONITOR.
--- NOTE | 2020-03-15 18:34 | NUR ---
SPRAY PAINTING MACHINE OPERATOR CLOSING NOTES PATIENT IN BED AWAKE AT THIS TIME. A/O X1, CONFUSED BUT RESPONSIVE TO VERBAL STIMULI. ON 02 VIA N/C @ 2LPM, TOLERATING WELL, BREATHING EVEN AND UNLABORED. ON TELE MONITORING, SR WITH PVC, HR IN THE 80'S, NO CARDIAC DISTRESS NOTED. IV ACCESS ON LEFT HAND G#22 INTACT AND PATENT. PT TURNED AND REPOSITION q2HRS AND PRN. ALL NEEDS AND CARE PROVIDED WELL. SAFETY PRECAUTIONS IN PLACE: BED ON LOWEST AND LOCKED POSITION, SR UP X2, CALL LIGHT W/IN REACH. WILL ENDORSE CONTINUITY OF CARE TO NIGHT NURSE.
[2020-03-15 18:39] LABS: CREATININE, URINE 38.8 MG/DL (30.0-125.0); URINE TOTAL PROTEIN 27.6 mg/dL (0-11.9)
[2020-03-15 18:55] LABS: APPEARANCE,URINE CLEAR (CLEAR); BILIRUBIN,URINE NEGATIVE (NEGATIVE); BLOOD, URINE SMALL Ery/uL (NEGATIVE); COLOR,URINE YELLOW (YELLOW); KETONES,URINE NEGATIVE (NEGATIVE); LEUKOCYTE ESTERASE ,URINE TRACE (NEGATIVE); NITRITE, URINE NEGATIVE (NEGATIVE); PROTEIN,URINE NEGATIVE (NEGATIVE); UGLUCOSE NEGATIVE (NEGATIVE)
[2020-03-15 19:01] LABS: BACTERIA,URINE Few /HPF (None Seen); RBC,URINE 0-2 /HPF (0-2); SQUAMOUS EPITHELIAL CELL,UR 0-2 /HPF (None Seen); URINE AMORPHOUS URATE Few /HPF (None Seen)
--- NOTE | 2020-03-15 19:40 | NUR ---
HAND MOLDER AND CASTER OPENING NOTES RECEIVED PATIENT IN BED ALERT AND ORIENTED X 1 CONFUSED BUT VERBALLY RESPONSIVE. BREATHING REGULAR AND UNLABORED ON OXYGEN AT 2L/MIN VIA NASAL CANNULA, LATEST SPO2 100%LEFT HAND G22 IV LINE INTACT AND PATENT, INFUSING WELL WITH NO BLEEDING OR S/S OF INFILTRATION NOTED. ON CARDIAC MONITORING WITH NORMAL SINUS RHYTHM AT 95bpm. NO S/S OF PAIN/DISCOMFORT NOTED AT THIS TIME. BED LOW AND LOCKED ON SEMI FOWLERS POSITION, CALL LIGHT IN REACH. BED ALARM ON. WILL CONTINUE TO MONITOR.
[2020-03-15 19:43] LABS: EOSINOPHIL,URINE None Seen
[2020-03-15 20:00] VITALS: BP 100/58
[2020-03-15] MEDS: QUETIAPINE FUMARATE 100 MG TABLET PO SCH (21:03)
[2020-03-15] MEDS: DIVALPROEX SODIUM 500 MG TABLET.DR PO SCH (21:03)
[2020-03-16] VITALS: BP 106/70
[2020-03-16 04:00] VITALS: BP 113/73
--- NOTE | 2020-03-16 06:00 | NUR ---
PLASTIC BOAT PATCHER NOTES BLADDER SCANNED FOR URINARY RETENTION, NOTED WITH >999ml's URINE. STRAIGHT CATHETERIZATION DONE WITH OUTPUT OF 900mls TAKEN OUT. WILL CONTINUE TO MONITOR.
[2020-03-16] MEDS: PIPERACILLIN /TAZOBACTAM 3.375 G in IV D5W 50 ML IV SCH (06:09)
--- NOTE | 2020-03-16 06:30 | NUR ---
PROOFING MACHINE OPERATOR CLOSING NOTES PATIENT IN BED ALERT AND ORIENTED X 1-2. AFEBRILE WITH NO S/S OF DISTRESS OBSERVED. LEFT HAND G22 IV LINE PATENT AND INFUSING WELL. MAINTAINED ON CARDIAC MONITORING WITH NSR/SINUS TACHYCARDIA. NO S/S OF PAIN/DISCOMFORT NOTED THE WHOLE SHIFT. BED LOW AND LOCKED ON SEMI FOWLERS POSITION, CALL LIGHT IN REACH. BED ALARM ON. WILL ENDORSE TO MORNING SHIFT FOR WES.
--- NOTE | 2020-03-16 07:25 | NUR ---
ms rn received on bed, awake,alert,oriented x 1,patient is confuse,respirations even and unlabred,no sob noted,no s/s of pain at this time,will monitor patient's condition.
[2020-03-16 07:53] LABS: CALCIUM, SERUM 8.9 mg/dL (8.5-10.1); CREATININE 1.8 mg/dL (0.6-1.3); MAGNESIUM 2.5 mg/dL (1.8-2.4); PHOSPHORUS 3.4 mg/dL (2.5-4.9); POTASSIUM 3.1 mmol/L (3.5-5.1)
[2020-03-16 08:00] VITALS: BP 123/65
[2020-03-16 08:20] LABS: BASOPHILS % (AUTO) 0.2 % (0.0-2.0); EOSINOPHILS % (AUTO) 0.6 % (0.0-6.0); HEMATOCRIT 46 % (39-51); HEMOGLOBIN 14.3 g/dL (13.5-17.5); LYMPHOCYTES # (AUTO) 1.1 /CMM (0.8-4.8); LYMPHOCYTES % (AUTO) 7.4 % (20.0-44.0); MEAN CORPUSCULAR HGB CONC 31 g/dl (31.0-36.0); MEAN CORPUSCULAR VOLUME 94 fL (80-96); MONOCYTES # (AUTO) 1.1 /CMM (0.1-1.30); MONOCYTES % (AUTO) 7.3 % (2.0-12.0); NEUTROPHILS # (AUTO) 13.2 /CMM (1.8-8.9); NEUTROPHILS % (AUTO) 84.5 % (43.0-81.0); PLATELET COUNT (AUTO) 124 /CMM (150-450); RED BLOOD CELL COUNT(AUTO) 4.89 MIL/uL (4.5-6.0); WHITE BLOOD COUNT (AUTO) 15.6 K/uL (4.3-11.0)
--- NOTE | 2020-03-16 08:34 | NUR ---
ms pradhan due meds given, lise held for now, b/p 153/67,will recheck later. Addendum: 03/16/20 at 0836 by KENYON BLOOD RN disregard notes, wrong documentation.
[2020-03-16] MEDS: HYDROGEL DRESSING 90 GM TUBE TP SCH (09:00)
--- NOTE | 2020-03-16 09:20 | NUR ---
ms rn swallow test done w/ speech therapy, due meds given, crushed, barely tolerated.
[2020-03-16] MEDS: ATORVASTATIN 10 MG TABLET PO SCH (10:25)
[2020-03-16] MEDS: TAMSULOSIN 0.4 MG CAP.SR.24H PO SCH (10:25)
[2020-03-16] MEDS: PANTOPRAZOLE 40 MG VIAL IV SCH (10:25)
[2020-03-16] MEDS: FOLIC ACID 1 MG TABLET PO SCH (10:25)
[2020-03-16] MEDS: CARVEDILOL 3.125 MG TABLET PO SCH ×2 (10:26→17:42)
[2020-03-16] MEDS: THIAMINE HCL 100 MG TABLET PO SCH (10:28)
[2020-03-16] MEDS: ASPIRIN 81 MG TAB.CHEW PO SCH (10:28)
[2020-03-16] MEDS: ENOXAPARIN SODIUM 40 MG/0.4 ML DISP.SYRIN SQ SCH (10:29)
[2020-03-16] MEDS ORDERED: POTASSIUM CHLORIDE 10 MEQ TABLET.SA PO ONE (11:00)
[2020-03-16] MEDS: IV D5W 1,000 ML IV PRN (11:18)
[2020-03-16] MEDS ORDERED: AMPICILLIN 1 GM VIAL IM SCH (12:00)
--- NOTE | 2020-03-16 12:30 | NUR ---
ms lorne was seen by minnie mehta/ orders made and carried out.
--- NOTE | 2020-03-16 13:30 | NUR ---
rn hernandez catheter inserted per order, 1050 output initially.
[2020-03-16] MEDS: AMPICILLIN SODIUM INJ 1 GM in IV NS 50 ML IV SCH ×3 (13:33→23:35)
[2020-03-16 16:00] VITALS: BP 139/85
[2020-03-16] MEDS: IV 1/2NS 1000 ML 1,000 ML IV PRN (17:42)
--- NOTE | 2020-03-16 18:20 | NUR ---
ms rn on bed,no distress noted,all needs attended.
[2020-03-16] MEDS: Z GUARD REMEDY 2 OZ OINT TP SCH (18:29)
--- NOTE | 2020-03-16 19:39 | NUR ---
PROCUREMENT INTERN NOTES PATIENT IN BED, AWAKE, ALERT AND ORIENTED X 1-2. CONFUSED WITH GARBLED WORDS. BREATHING EVEN AND UNLABORED ON 2L NC. SHOWS NO SIGNS OF ACUTE RESPIRATORY DISTRESS. NO ACUTE PAIN. TELE MONITOR SR. FC CLEAN DRY AND INTACT FLOWING URINE. IV ON L HAND 22G 1/2 NS AT 125ML/HR. SHOWS NO SIGNS OF INFILTRATION, NO REDNESS. SAFETY PRECAUTIONS IN PLACE. BED IN LOWEST POSITION, LOCKED, AND CALL LIGHT KEPT WITHIN REACH. WILL CONTINUE TO MONITOR.
[2020-03-16 20:00] VITALS: BP 121/63
[2020-03-16] MEDS: QUETIAPINE FUMARATE 100 MG TABLET PO SCH (22:08)
[2020-03-16] MEDS: DIVALPROEX SODIUM 500 MG TABLET.DR PO SCH (22:14)
[2020-03-17] VITALS: BP 122/70
[2020-03-17] MEDS: IV 1/2NS 1000 ML 1,000 ML IV PRN (03:48)
[2020-03-17 04:00] VITALS: BP 120/75
[2020-03-17] MEDS: AMPICILLIN SODIUM INJ 1 GM in IV NS 50 ML IV SCH ×4 (05:03→23:15)
--- NOTE | 2020-03-17 06:57 | NUR ---
STAFFING ANALYST NOTES PATIENT IN BED, ASLEEP, ALERT AND ORIENTED X 1-2. CONFUSED WITH GARBLED WORDS. BREATHING EVEN AND UNLABORED ON 2L NC. SHOWS NO SIGNS OF ACUTE RESPIRATORY DISTRESS. NO ACUTE PAIN. TELE MONITOR SR. FC CLEAN DRY AND INTACT FLOWING URINE. IV ON L HAND 22G RUNNING 1/2 NS AT 125ML/HR. SHOWS NO SIGNS OF INFILTRATION, NO REDNESS. ALL NEEDS ATTENDED TO. ALL DUE MEDICATIONS GIVEN. SAFETY PRECAUTIONS IN PLACE, BED ALARM ON. BED IN LOWEST POSITION, LOCKED, AND CALL LIGHT KEPT WITHIN REACH. WILL ENDORSE TO ONCOMING NURSE.
--- NOTE | 2020-03-17 07:25 | NUR ---
CITY WEIGHMASTER NOTES RECEIVED PATIENT IN BED, ALERT AND AWAKE ORIENTED X1. HOB ELEVATED. ON O2 AT 2L/MIN VIA NC CASIMIRO WELL. NO SOB OBSERVED. DENIES ANY C/O PAIN NOR DISCOMFORT AT THIS TIME. ON TELE MONITORING SR : 88. LEFT HAND IV ACCESS INFUSING 1/2 NS AT 125ML/HR CASIMIRO WELL. RUBIN CATHETER INTACT AND PATENT DRAINING URINE VIA BEDSIDE. BED IN LOWEST POSITION, LOCKED. BED ALARM ON. CALL LIGHT WITHIN REACH. FREQUENT VISUAL CHECK DONE.
[2020-03-17 07:46] LABS: CALCIUM, SERUM 9.5 mg/dL (8.5-10.1); CREATININE 1.5 mg/dL (0.6-1.3); POTASSIUM 3.1 mmol/L (3.5-5.1)
[2020-03-17 08:00] VITALS: BP 124/74
[2020-03-17] MEDS: IV D5W 1,000 ML IV PRN ×2 (08:16→19:19)
[2020-03-17] MEDS: ASPIRIN 81 MG TAB.CHEW PO SCH (09:28)
[2020-03-17] MEDS: FOLIC ACID 1 MG TABLET PO SCH (09:28)
[2020-03-17] MEDS: PANTOPRAZOLE 40 MG VIAL IV SCH (09:28)
[2020-03-17] MEDS: CARVEDILOL 3.125 MG TABLET PO SCH ×2 (09:29→17:22)
[2020-03-17] MEDS: TAMSULOSIN 0.4 MG CAP.SR.24H PO SCH (09:29)
[2020-03-17] MEDS: ATORVASTATIN 10 MG TABLET PO SCH (09:29)
[2020-03-17] MEDS: ENOXAPARIN SODIUM 40 MG/0.4 ML DISP.SYRIN SQ SCH (09:30)
[2020-03-17] MEDS: THIAMINE HCL 100 MG TABLET PO SCH (09:32)
[2020-03-17] MEDS: Z GUARD REMEDY 2 OZ OINT TP SCH (09:32)
[2020-03-17] MEDS: HYDROGEL DRESSING 90 GM TUBE TP SCH (09:34)
[2020-03-17] MEDS: POTASSIUM CHLORIDE 20 MEQ TAB.PRT.SR PO SCH ×2 (10:11→11:24)
[2020-03-17] MEDS: LORAZEPAM INJ 2 MG/ML VIAL IV PRN (10:42)
[2020-03-17] MEDS: ENSURE ENLIVE CHOC 237 ML CAN PO SCH ×2 (12:52→17:22)
[2020-03-17 16:00] VITALS: BP 130/75
--- NOTE | 2020-03-17 19:00 | NUR ---
PHOTOGRAPHIC ENLARGER OPERATOR OPENING NOTES RECEIVED PATIENT IN BED AWAKE , ALERT X1, CONFUSED, GARBLED SPEECH, ON 2 L VIA NC TOLERATING WELL, RESPIRATIONS EVEN AND UNLABORED WITH EQUAL RISE AND FALL OF CHEST, APPEARS COMFORTABLE AT THIS TIME, FREE OF PAIN , RUBIN CATHETER INTACT AND PATENT, DRAINING YELLOW URINE, LEFT HAND IV SITE REMOVED NOTED LEAKING, NEW IV SITE PLACED TO RIGHT FA #22 G INTACT AND PATENT, IVF RUNNING ON NEW SITE ORDERED , ASPIRATION PRECAUTIONS RENDERED, BED ALARM IN PLACE, LOW BED AND LOCKED, SAFETY PRECAUTIONS RENDERED, ALL NEEDS ATTENDED AT THIS TIME WILL CONTINUE TO MONITOR AND ATTEND TO NEEDS.
--- NOTE | 2020-03-17 19:00 | NUR ---
ON CARDIAC TELE MONITOR SR 97.
--- NOTE | 2020-03-17 19:35 | NUR ---
TIMBER SELECTOR NOTES PATIENT RESTING COMFORTABLY IN BED. OBSERVED PATIENT THROUGHOUT THE SHIFT WITH EPISODE OF ON AND OFF RESTLESSNESS. PATIENT REQUIRES FREQUENT REALITY ORIENTATION AND REPOSITIONING IN BED DESPITE OF INDEPENDENT IN BED MOBILITY. HOB ELEVATED. ON O2 AT 2L/MIN VIA NC CASIMIRO WELL. NO S/S OF RESPIRATORY DISTRESS. DENIES ANY C/O PAIN NOR DISCOMFORT AT THIS TIME. LEFT HAND IV ACCESS INFUSING D5W AT 100ML/HR CASIMIRO WELL. RUBIN CATHETER INTACT AND PATENT DRAINING URINE VIA BEDSIDE. BED IN LOWEST POSITION, LOCKED. BED ALARM ON. CALL LIGHT WITHIN REACH. IN NO APPARENT DISTRESS.
[2020-03-17 20:00] VITALS: BP 118/77
[2020-03-17] MEDS: DIVALPROEX SODIUM 500 MG TABLET.DR PO SCH (21:05)
[2020-03-17] MEDS: QUETIAPINE FUMARATE 100 MG TABLET PO SCH (21:05)
[2020-03-17 23:45] LABS: BASOPHILS # (AUTO) 0.1 /CMM (0.0-0.2); BASOPHILS % (AUTO) 0.8 % (0.0-2.0); EOSINOPHILS % (AUTO) 0.4 % (0.0-6.0); HEMATOCRIT 47 % (39-51); HEMOGLOBIN 15.3 g/dL (13.5-17.5); LYMPHOCYTES # (AUTO) 1.3 /CMM (0.8-4.8); MEAN CORPUSCULAR HGB CONC 32 g/dl (31.0-36.0); MEAN CORPUSCULAR VOLUME 92 fL (80-96); MONOCYTES # (AUTO) 1.2 /CMM (0.1-1.30); MONOCYTES % (AUTO) 10.6 % (2.0-12.0); NEUTROPHILS # (AUTO) 8.3 /CMM (1.8-8.9); NEUTROPHILS % (AUTO) 76.2 % (43.0-81.0); PLATELET COUNT (AUTO) 158 /CMM (150-450); RED BLOOD CELL COUNT(AUTO) 5.15 MIL/uL (4.5-6.0)
[2020-03-18] VITALS (7 sets, daily range): BP systolic 104–136; BP diastolic 58–78
[2020-03-18] MEDS: AMPICILLIN SODIUM INJ 1 GM in IV NS 50 ML IV SCH ×3 (05:29→17:01)
[2020-03-18] MEDS: LORAZEPAM INJ 2 MG/ML VIAL IV PRN ×3 (05:35→20:16)
--- NOTE | 2020-03-18 05:36 | NUR ---
corner block cutter notes ativan as ordered prn given noted with increased agitation anxiety. witnessed and wasted with another rn . dose given as ordered.
[2020-03-18 06:36] LABS: BASOPHILS % (AUTO) 0.3 % (0.0-2.0); EOSINOPHILS % (AUTO) 0.3 % (0.0-6.0); HEMATOCRIT 49 % (39-51); HEMOGLOBIN 15.6 g/dL (13.5-17.5); LYMPHOCYTES # (AUTO) 1.4 /CMM (0.8-4.8); LYMPHOCYTES % (AUTO) 10.9 % (20.0-44.0); MEAN CORPUSCULAR HGB CONC 32 g/dl (31.0-36.0); MEAN CORPUSCULAR VOLUME 91 fL (80-96); MONOCYTES # (AUTO) 1.2 /CMM (0.1-1.30); MONOCYTES % (AUTO) 9.4 % (2.0-12.0); NEUTROPHILS # (AUTO) 10.4 /CMM (1.8-8.9); NEUTROPHILS % (AUTO) 79.1 % (43.0-81.0); PLATELET COUNT (AUTO) 178 /CMM (150-450); RED BLOOD CELL COUNT(AUTO) 5.31 MIL/uL (4.5-6.0); WHITE BLOOD COUNT (AUTO) 13.2 K/uL (4.3-11.0)
--- NOTE | 2020-03-18 06:37 | NUR ---
BOOM STICK MAN CLOSING NOTES PATIENT IN BED AWAKE , ALERT X1, CONFUSED, GARBLED SPEECH, ON 2 L VIA NC TOLERATING WELL, RESPIRATIONS EVEN AND UNLABORED WITH EQUAL RISE AND FALL OF CHEST, APPEARS COMFORTABLE AT THIS TIME, FREE OF PAIN, ATIVAN WAS EFFECTIVE,RUBIN CATHETER INTACT AND PATENT, DRAINING YELLOW/RICK URINE, IV SITE TO RIGHT FA #22 G INTACT AND PATENT, IVF RUNNING ON ORDERED , ASPIRATION PRECAUTIONS RENDERED, BED ALARM IN PLACE, WOUND CARE DONE ORDERED, LOW BED AND LOCKED, SAFETY PRECAUTIONS RENDERED, ALL NEEDS ATTENDED AT THIS TIME WILL CONTINUE TO MONITOR AND ATTEND TO NEEDS AND ENDORSE TO NEXT SHIFT, ORAL CARE PROVIDED.
--- NOTE | 2020-03-18 06:38 | NUR ---
ON TOBACCO GRADER [id number]
[2020-03-18 06:59] LABS: CALCIUM, SERUM 9.7 mg/dL (8.5-10.1); CREATININE 1.2 mg/dL (0.6-1.3); PHOSPHORUS 2.4 mg/dL (2.5-4.9)
--- NOTE | 2020-03-18 07:27 | NUR ---
CHARU OPEN NOTES PATIENT IS AWAKE A/O X 1-2 IN BED WITH NO SIGNS OF DISTRESS ON 2L OF NASAL CANNULA. IV ON R FA #22GI INTACT RUNNING D5W AT 100MLS/HR. RUBIN CATHETER INTACT. SAFETY MEASURES ARE APPLIED, BED IS LOW AND LOCKED. SIDE RAILS UP X 2 FOR SAFETY. CALL LIGHT WITHIN REACH. WILL CONTINUE TO MONITOR.
[2020-03-18 07:40] LABS: POTASSIUM 2.8 mmol/L (3.5-5.1)
--- NOTE | 2020-03-18 08:12 | NUR ---
CRITICAL LAB SODIUM 158 AND POTASSIUM 2.8. INFORMED DR. VENEGAS NO NEW ORDERS PATIENT IS CURRENTLY D5W AT 100ML/HR. WILL CONTINUE TO MONITOR.
[2020-03-18] MEDS: ASPIRIN 81 MG TAB.CHEW PO SCH (09:20)
[2020-03-18] MEDS: THIAMINE HCL 100 MG TABLET PO SCH (09:20)
[2020-03-18] MEDS: FOLIC ACID 1 MG TABLET PO SCH (09:21)
[2020-03-18] MEDS: CARVEDILOL 3.125 MG TABLET PO SCH ×2 (09:21→16:58)
[2020-03-18] MEDS: ATORVASTATIN 10 MG TABLET PO SCH (09:21)
[2020-03-18] MEDS: TAMSULOSIN 0.4 MG CAP.SR.24H PO SCH (09:21)
[2020-03-18] MEDS: Z GUARD REMEDY 2 OZ OINT TP SCH (09:22)
[2020-03-18] MEDS: PANTOPRAZOLE 40 MG VIAL IV SCH (09:23)
[2020-03-18] MEDS: HYDROGEL DRESSING 90 GM TUBE TP SCH (09:23)
[2020-03-18] MEDS: ENSURE ENLIVE CHOC 237 ML CAN PO SCH ×3 (09:25→17:01)
[2020-03-18] MEDS: IV D5W 1,000 ML IV PRN (09:29)
[2020-03-18] MEDS: POTASSIUM PHOSPHATE MM 7.5 MMOL in IV NS 0.9% 100 ML IV SCH ×2 (11:01→14:18)
[2020-03-18] MEDS: POTASSIUM CHLORIDE 20 MEQ POWDER PACKET PO SCH ×2 (11:04→12:09)
[2020-03-18] MEDS: ENOXAPARIN SODIUM 40 MG/0.4 ML DISP.SYRIN SQ SCH (12:37)
--- NOTE | 2020-03-18 18:34 | NUR ---
RN CLOSING NOTES PATIENT IS AWAKE A/O X 1-2 IN BED WITH NO SIGNS OF DISTRESS ON 2L OF NASAL CANNULA. TELE HR 93 WITH PVC. IV ON R FA #22G INTACT RUNNING D5W AT 175MLS/HR. RUBIN CATHETER INTACT. NO COMPLAIN OF PAIN. PATIENT REMAINED STABLE THROUGH OUT SHIFT. PATIENT KEPT CLEAN AND DRY. ALL NEEDS, CARE, TREATMENT AND MEDICATIONS ADMINISTERED ANTICIPATED PER ORDER. SAFETY MEASURES ARE APPLIED, BED IS LOW AND LOCKED. SIDE RAILS UP X 2 FOR SAFETY. CALL LIGHT WITHIN REACH. WILL ENDORSE TO THE NEXT NATURAL DEVELOPER.
--- NOTE | 2020-03-18 20:23 | NUR ---
Received the patient in bed confused arms and leg flailing when I approached him he balled his fist and started hitting the nurse. Asked him if he likes sports and he did say "yes" sports turned on the TV for him. hernandez drainage clear yellow pulse ox on sats95% on 2 liters N/C
[2020-03-18] MEDS: DIVALPROEX SODIUM 500 MG TABLET.DR PO SCH (21:43)
[2020-03-18] MEDS: QUETIAPINE FUMARATE 100 MG TABLET PO SCH (21:44)
[2020-03-19] VITALS: BP 128/85
[2020-03-19] MEDS: AMPICILLIN 1 GM in IV NS 0.9% 50 ML IV SCH ×3 (00:58→16:56)
[2020-03-19] MEDS: IV D5W 1,000 ML IV PRN ×3 (01:04→17:09)
[2020-03-19 01:08] VITALS: BP 128/85
[2020-03-19 04:00] VITALS: BP 116/70
--- NOTE | 2020-03-19 04:27 | NUR ---
ENDING NOTES: Alert and orientated X! When spoken to, will have eye contact but answers the question inappriop. His extremities through out this 12 hours have been flailing and reaching out for "whatever"he he is seeing. TV on didn't help to reorientate hin. Linton cath clear yellow drainage. Asp precautions when given puree diet or thickened liquids. Swallows w/o problems. Pills Crushed Tele reading ST with PVC occasionally HR79. Sacral wound mepilex in place. Continuous pulse ox on Sats 97 - 100 % with NC 2 liters 02.Noted shins have scabs
[2020-03-19 04:57] VITALS: BP 116/70
[2020-03-19 07:16] LABS: BASOPHILS % (AUTO) 0.2 % (0.0-2.0); EOSINOPHILS % (AUTO) 0.6 % (0.0-6.0); HEMATOCRIT 47 % (39-51); HEMOGLOBIN 14.8 g/dL (13.5-17.5); LYMPHOCYTES # (AUTO) 1.3 /CMM (0.8-4.8); LYMPHOCYTES % (AUTO) 11.1 % (20.0-44.0); MEAN CORPUSCULAR HGB CONC 32 g/dl (31.0-36.0); MEAN CORPUSCULAR VOLUME 93 fL (80-96); MONOCYTES # (AUTO) 0.9 /CMM (0.1-1.30); MONOCYTES % (AUTO) 7.9 % (2.0-12.0); NEUTROPHILS # (AUTO) 9.6 /CMM (1.8-8.9); NEUTROPHILS % (AUTO) 80.2 % (43.0-81.0); PLATELET COUNT (AUTO) 175 /CMM (150-450); RED BLOOD CELL COUNT(AUTO) 5.04 MIL/uL (4.5-6.0); WHITE BLOOD COUNT (AUTO) 11.9 K/uL (4.3-11.0)
[2020-03-19 08:00] VITALS: BP 116/69
--- NOTE | 2020-03-19 08:00 | NUR ---
SWIMMER OPENING NOTES Received Patient resting in bed. A/O x 1. VS stable with no acute distress. Breathing even and unlabored on room air with no respiratory distress. Denies pain. No signs and symptoms of pain. Telemonitor in place and patent reading SR with HR-92. 22g PIV on RFA intact, patent and flushing well with D5W infusing at 175ml/hr. Linton Cath in place and patent. Safety precautions in place. Bed locked and set to lowest position with side rails x 3 up. All needs rendered at this time. Call light within reach. Will continue to monitor.
[2020-03-19] MEDS: ENSURE ENLIVE CHOC 237 ML CAN PO SCH ×3 (08:01→16:58)
[2020-03-19] MEDS: FOLIC ACID 1 MG TABLET PO SCH (08:39)
[2020-03-19] MEDS: ATORVASTATIN 10 MG TABLET PO SCH (08:39)
[2020-03-19] MEDS: TAMSULOSIN 0.4 MG CAP.SR.24H PO SCH (08:39)
[2020-03-19] MEDS: THIAMINE HCL 100 MG TABLET PO SCH (08:39)
[2020-03-19] MEDS: PANTOPRAZOLE 40 MG VIAL IV SCH (08:39)
[2020-03-19] MEDS: CARVEDILOL 3.125 MG TABLET PO SCH ×2 (08:39→16:58)
[2020-03-19] MEDS: ASPIRIN 81 MG TAB.CHEW PO SCH (08:39)
[2020-03-19] MEDS: ENOXAPARIN SODIUM 40 MG/0.4 ML DISP.SYRIN SQ SCH (08:40)
[2020-03-19] MEDS: Z GUARD REMEDY 2 OZ OINT TP SCH (08:41)
[2020-03-19] MEDS: HYDROGEL DRESSING 90 GM TUBE TP SCH (08:42)
[2020-03-19 08:55] LABS: CALCIUM, SERUM 9.3 mg/dL (8.5-10.1); MAGNESIUM 1.9 mg/dL (1.8-2.4)
[2020-03-19 09:09] LABS: POTASSIUM 2.6 mmol/L (3.5-5.1)
[2020-03-19] MEDS ORDERED: POTASSIUM CHLORIDE 20 MEQ POWDER PACKET PO ONE (11:00)
--- NOTE | 2020-03-19 13:50 | NUR ---
CUSTOMS MANAGER NOTES Inserted NG Tube at this time. Patient tolerated well. STAT Chest xray pending.
--- NOTE | 2020-03-19 19:10 | NUR ---
DIRECTOR PERSONAL CLOSING NOTES Patient resting in bed. A/O x 1. VS stable with no acute distress. Breathing even and unlabored on 2LPM via NC with no respiratory distress. Denies pain. No signs and symptoms of pain. Telemonitor in place and patent reading SR with HR-94. 22g PIV on RFA intact, patent and flushing well with D5W infusing at 175ml/hr. Linton Cath in place and patent. Safety precautions in place. Bed locked and set to lowest position with side rails x 3 up. All needs rendered at this time. Call light within reach. Will endorse plan of care to oncoming shift.
[2020-03-19 20:00] VITALS: BP 104/70
[2020-03-19] MEDS: QUETIAPINE FUMARATE 100 MG TABLET PO SCH (21:14)
[2020-03-19] MEDS: DIVALPROEX SODIUM 500 MG TABLET.DR PO SCH (21:14)
--- NOTE | 2020-03-19 23:14 | NUR ---
REPORT GIVEN TO MADHAV[facility] BOX. TO CONTINUE CARE. QUESTIONS CONNCERNS ADDRESSED. PT IN NO APPARENT DISTRESS. IV REMOVED FROM FOREARM. NEW IV PLACED ON RIGHT WRIST #22. IVF CONTINUED ORDERED WITH NO S/S OF COMPLICATIONS. BED DOWN LOCKED SRX3 BED ALARM ACTIVE.
--- NOTE | 2020-03-19 23:45 | NUR ---
RN NOTES RECEIVED PT. FROM ANOTHER NURSE, PT. IS SLEEPING BUT AROUSABLE, ON NG-TUBE, NOT IN DISTRESS, F/C DRAINING LIGHT RICK URINE, SIDERAILSUPX2, CONTINUE TO MONITOR
[2020-03-20] VITALS: BP 96/55
[2020-03-20] MEDS: IV D5W 1,000 ML IV PRN ×3 (00:36→21:57)
[2020-03-20] MEDS: AMPICILLIN 1 GM in IV NS 0.9% 50 ML IV SCH ×3 (00:36→17:13)
[2020-03-20 04:00] VITALS: BP 124/82
--- NOTE | 2020-03-20 06:25 | NUR ---
RN NOTES AWAKE, MORNING CARE RENDERED, NOT IN DISTRESS, NO PAIN NOTED, SIDERAILSUPX2, PT. NEEDS ATTENDED
[2020-03-20 08:00] VITALS: BP_SYST 118; BP_DIAS 74; BP_DIAS 77
--- NOTE | 2020-03-20 08:00 | NUR ---
RN NOTES RECEIVED PATIENT IN THE BED A/O X1. WITH CONFUSION, FORGETFUL, WITHDRAWAL, ANXIOUS, KEEP MOVING IN THE BED. NG TUBE INTACT, IV ACCESS IN THE RIGHT WRIST INFUSING D5W AT 175 ML/HR, ASSIST EATING BY FARM IMPLEMENT MECHANIC TOLERATED 25 TO 30% , KEEP HOB ELEVATES FOR ASPIRATION PRECAUTION, DUE MEDICATION ADMINISTERED, RUBIN DRAINING DARK YELLOW OUTPUT. CALL LIGHT AND BED ALARM ON. WILL MONITORING CLOSELY.
[2020-03-20 08:12] LABS: BASOPHILS % (AUTO) 0.3 % (0.0-2.0); EOSINOPHILS % (AUTO) 0.9 % (0.0-6.0); HEMATOCRIT 43 % (39-51); HEMOGLOBIN 13.4 g/dL (13.5-17.5); LYMPHOCYTES # (AUTO) 1.4 /CMM (0.8-4.8); LYMPHOCYTES % (AUTO) 9.8 % (20.0-44.0); MEAN CORPUSCULAR HGB CONC 31 g/dl (31.0-36.0); MEAN CORPUSCULAR VOLUME 92 fL (80-96); MONOCYTES # (AUTO) 0.8 /CMM (0.1-1.30); MONOCYTES % (AUTO) 5.8 % (2.0-12.0); NEUTROPHILS # (AUTO) 11.8 /CMM (1.8-8.9); NEUTROPHILS % (AUTO) 83.2 % (43.0-81.0); PLATELET COUNT (AUTO) 175 /CMM (150-450); RED BLOOD CELL COUNT(AUTO) 4.63 MIL/uL (4.5-6.0); WHITE BLOOD COUNT (AUTO) 14.1 K/uL (4.3-11.0)
[2020-03-20 08:52] LABS: CREATININE 0.9 mg/dL (0.6-1.3); MAGNESIUM 1.7 mg/dL (1.8-2.4); PHOSPHORUS 2.8 mg/dL (2.5-4.9)
[2020-03-20] MEDS: ENSURE ENLIVE CHOC 237 ML CAN PO SCH ×3 (08:53→17:12)
[2020-03-20] MEDS: TAMSULOSIN 0.4 MG CAP.SR.24H PO SCH (09:05)
[2020-03-20] MEDS: ATORVASTATIN 10 MG TABLET PO SCH (09:05)
[2020-03-20] MEDS: ASPIRIN 81 MG TAB.CHEW PO SCH (09:05)
[2020-03-20] MEDS: FOLIC ACID 1 MG TABLET PO SCH (09:05)
[2020-03-20] MEDS: CARVEDILOL 3.125 MG TABLET PO SCH ×2 (09:06→17:12)
[2020-03-20] MEDS: Z GUARD REMEDY 2 OZ OINT TP SCH (09:07)
[2020-03-20] MEDS: HYDROGEL DRESSING 90 GM TUBE TP SCH (09:08)
[2020-03-20] MEDS: THIAMINE HCL 100 MG TABLET PO SCH (09:09)
[2020-03-20] MEDS: ENOXAPARIN SODIUM 40 MG/0.4 ML DISP.SYRIN SQ SCH (09:11)
[2020-03-20] MEDS: PANTOPRAZOLE 40 MG/PACK PACK PO SCH (09:15)
[2020-03-20] MEDS: LORAZEPAM INJ 2 MG/ML VIAL IV PRN (09:15)
--- NOTE | 2020-03-20 09:15 | NUR ---
rn notes patient anxious, paranoid administered ativan 1 mg/ml iv push as prescribed. BP-150/50, p-102, also administered scheduled medication crushed mixed with apple sauce.
[2020-03-20 10:12] LABS: POTASSIUM 2.8 mmol/L (3.5-5.1)
[2020-03-20] MEDS ORDERED: POTASSIUM CHLORIDE 20 MEQ POWDER PACKET PO ONE (10:30)
[2020-03-20] MEDS ORDERED: Magnesium 1GM/D5W 100ML PREMIX 100 ML IV SCH (10:30)
--- NOTE | 2020-03-20 12:00 | NUR ---
RN NOTES FLASHED 250 ML OF WATER Q 6 HR PER HOSPITALIST ORDERS, PATIENT STILL RESTLESS, CONTINUED MONITORING..
[2020-03-20 16:00] VITALS: BP 119/64
--- NOTE | 2020-03-20 18:30 | NUR ---
RN NOTES DUE MEDICATION ADMINISTERED, FLASHED NG TUBE WITH 250 ML OF WATER PRESCRIBED Q6 HR, RECHECKED MITTENS FOR CIRCULATION, PATIENT GETTING IRRITABLE EASILY, V/S WNL, CALL LIGHT AND BED ALARM ON. ENDORSED ONCOMING NURSE FOLLOW PLAN OF CARE.
--- NOTE | 2020-03-20 19:47 | NUR ---
DIVING COACH OPENING NOTES PATIENT RECEIVED RESTING IN BED COMFORTABLY; A/OX1, MUMBLES; PATIENT ON 2LPM VIA NC, TOLERATING WELL; PATIENT IN DISTRESS, PER AM SHIFT, THIS IS PATIENTS BASELINE; PATIENT HAS NG TUBE IN PLACE, TELE MONITOR ATTACHED, READS SINUS RHYTHM 95BPM; RUBIN CATH IN PLACE, WITH YELLOW OUTPUT NOTED; LUBNA MIDLINE INTACT INFUSING D5 @ 175ML/HR; TOLERATING IVF WELL; BILATERAL SOFT WRIST MITTENS NOTED; SAFETY PRECAUTIONS IMPLEMENTED; BED LOCKED IN LOW POSITION; SIDE RAILSX2; WILL CONT TO MONITOR
[2020-03-20 20:00] VITALS: BP 104/58
[2020-03-20] MEDS: DIVALPROEX SODIUM 500 MG TABLET.DR PO SCH (21:24)
[2020-03-20] MEDS: QUETIAPINE FUMARATE 100 MG TABLET PO SCH (21:24)
[2020-03-21] VITALS: BP_SYST 104; BP_SYST 135; BP_SYST 136; BP_DIAS 48; BP_DIAS 57
[2020-03-21] MEDS: AMPICILLIN 1 GM in IV NS 0.9% 50 ML IV SCH ×3 (00:05→16:40)
[2020-03-21] MEDS: LORAZEPAM INJ 2 MG/ML VIAL IV PRN (02:07)
[2020-03-21 04:00] VITALS: BP 104/48
--- NOTE | 2020-03-21 06:37 | NUR ---
BROKERAGE COORDINATOR CLOSING NOTES PATIENT RESTING IN BED COMFORTABLY; A/OX1, MUMBLES; PATIENT TOLERATING ROOM AIR WELL AT 100%; NO SOB NOTED; TELE MONITOR READS SINUS RHYTHM; LUBNA MIDLINE INTACT, INFUSING D5W @ 175ML/HR; PATIENT TOLERATING IVF WELL; BILATERAL SOFT MITTENS IN PLACE, NO EVIDENCE OF SKIN BREAKDOWN NOTED; RUBIN IN PLACE, WITH YELLOW OUTPUT OF 500CC NOTED; ALL NEEDS RENDERED; SAFETY PRECAUTIONS IMPLEMENTED; BED LOCKED IN LOW POSITION; SIDE RAILSX2; WILL ENDORSE WES TO ONCOMING SHIFT
--- NOTE | 2020-03-21 07:30 | NUR ---
HAT CLEANER NOTES PT IN BED, ASLEEP, EASILY AROUSABLE, ALERT TO SELF, MUMBLES, NO SIGN OF PAIN, RESPIRATIONS NORMAL, NGT IN PLACE, IV FLUIDS INFUSING WELL, REPOSITIONED FOR COMFORT, KEPT WARM AND COMFORTABLE IN BED.
[2020-03-21 07:34] LABS: BASOPHILS % (AUTO) 0.3 % (0.0-2.0); HEMATOCRIT 48 % (39-51); HEMOGLOBIN 15.1 g/dL (13.5-17.5); LYMPHOCYTES # (AUTO) 1.3 /CMM (0.8-4.8); LYMPHOCYTES % (AUTO) 9.7 % (20.0-44.0); MEAN CORPUSCULAR HGB CONC 32 g/dl (31.0-36.0); MEAN CORPUSCULAR VOLUME 93 fL (80-96); MONOCYTES # (AUTO) 0.7 /CMM (0.1-1.30); MONOCYTES % (AUTO) 5.1 % (2.0-12.0); NEUTROPHILS # (AUTO) 11.5 /CMM (1.8-8.9); NEUTROPHILS % (AUTO) 83.9 % (43.0-81.0); PLATELET COUNT (AUTO) 191 /CMM (150-450); RED BLOOD CELL COUNT(AUTO) 5.17 MIL/uL (4.5-6.0); WHITE BLOOD COUNT (AUTO) 13.7 K/uL (4.3-11.0)
[2020-03-21 08:00] VITALS: BP 110/60
[2020-03-21 08:18] LABS: ALBUMIN 1.8 g/dL (3.4-5.0); BILIRUBIN,TOTAL 1.5 mg/dL (0.2-1.0); CALCIUM, SERUM 9.1 mg/dL (8.5-10.1); CREATININE 1.1 mg/dL (0.6-1.3); MAGNESIUM 2.1 mg/dL (1.8-2.4); PHOSPHORUS 3.1 mg/dL (2.5-4.9); TOTAL PROTEIN, SERUM 6.8 g/dL (6.4-8.2)
[2020-03-21] MEDS: ENSURE ENLIVE CHOC 237 ML CAN PO SCH ×3 (08:37→16:36)
[2020-03-21] MEDS: PANTOPRAZOLE 40 MG/PACK PACK PO SCH (08:37)
[2020-03-21 08:42] LABS: POTASSIUM 2.6 mmol/L (3.5-5.1)
[2020-03-21] MEDS: ASPIRIN 81 MG TAB.CHEW PO SCH (08:58)
[2020-03-21] MEDS: CARVEDILOL 3.125 MG TABLET PO SCH ×2 (09:05→16:56)
[2020-03-21] MEDS: FOLIC ACID 1 MG TABLET PO SCH (09:06)
[2020-03-21] MEDS: ATORVASTATIN 10 MG TABLET PO SCH (09:06)
[2020-03-21] MEDS: TAMSULOSIN 0.4 MG CAP.SR.24H PO SCH (09:06)
[2020-03-21] MEDS: THIAMINE HCL 100 MG TABLET PO SCH (09:06)
[2020-03-21] MEDS: ENOXAPARIN SODIUM 40 MG/0.4 ML DISP.SYRIN SQ SCH (09:08)
[2020-03-21] MEDS: HYDROGEL DRESSING 90 GM TUBE TP SCH (09:09)
[2020-03-21] MEDS: Z GUARD REMEDY 2 OZ OINT TP SCH (09:10)
[2020-03-21] MEDS: POTASSIUM CL. PREMIX PERIPHER. 50 ML IV SCH ×4 (10:08→12:52)
--- NOTE | 2020-03-21 11:00 | NUR ---
MECHANICAL STRIPER NOTES PT IN BED, SEEN AND EXAMINED BY DR. RUBI MD AWARE OF ABNORMAL LABS, ORDERS GIVEN, NOTED AND CARRIED OUT.
[2020-03-21 12:00] VITALS: BP 123/60
[2020-03-21] MEDS: Potassium Chloride 20 MEQ in IV D5W 1,000 ML IV PRN ×2 (14:31→21:57)
[2020-03-21 16:00] VITALS: BP 100/56
--- NOTE | 2020-03-21 19:13 | NUR ---
NURSE REVIEWER CLOSING SHIFT NOTES PATIENT RESTING IN BED COMFORTABLY, A/OX1, ON RA WITH O2 SAT @ 100%, NO SOB NOTED, NO ACUTE RESPIRATORY DISTRESS NOTED, TELE MONITOR READS SINUS RHYTHM, LUBNA MIDLINE INTACT, INFUSING D5W @ 175ML/HR; PATIENT TOLERATING IVF WELL; BILATERAL SOFT MITTENS IN PLACE, PT WITH NGT IN PLACE FLUSHED WITH 250 ML H2O, RUBIN IN PLACE, WITH YELLOW OUTPUT, BED AT LOWEST POSITION, WITH SIDE RAILS UPX2 AND LOCKED, ALL SAFETY PRECAUTIONS IMPLEMENTED.
--- NOTE | 2020-03-21 19:15 | NUR ---
aqueduct and reservoir keeper opening notes Received Pt from morning nurse. Pt is resting in bed comfortably. Pt is alert and orientedX1 and mumbles. Respiration is normal in room air. NO SOB. No S/S of distress noted. Tele monitor showed SR with BBB HR at 91. LUBNA midline is clean, intact and infusing well potassium chloride 20meq in D5W@ 175 ml/hr. NG tube is in placed. Bilateral soft wrist mittens are in placed, skin is warm to touch and circulation is check. Linton cath is intact and draining yellow urine. Safety precautions is maintained. Bed at low position, brakes locked, HOB elevated, side rails upX3 and call light is within reach. Will continue to monitor.
[2020-03-21 20:00] VITALS: BP 123/47
[2020-03-21] MEDS: QUETIAPINE FUMARATE 100 MG TABLET PO SCH (21:52)
[2020-03-21] MEDS: DIVALPROEX SODIUM 500 MG TABLET.DR PO SCH (21:52)
[2020-03-22] VITALS: BP 103/65
[2020-03-22] MEDS: AMPICILLIN 1 GM in IV NS 0.9% 50 ML IV SCH ×2 (01:03→08:45)
[2020-03-22 04:00] VITALS: BP 129/93
[2020-03-22] MEDS: Potassium Chloride 20 MEQ in IV D5W 1,000 ML IV PRN (04:22)
--- NOTE | 2020-03-22 06:50 | NUR ---
mine patrol closing notes Pt is resting in bed comfortably. Pt is alert and orientedX1 and mumbles. Respiration is normal in room air. NO SOB. No S/S of distress noted. Tele monitor showed Sinus tachy Hr at 107. Vs is stable. Routine meds were given as ordered. LUBNA midline is clean, intact and infusing well potassium chloride 20meq in D5W@ 175 ml/hr. NG tube is in placed. Bilateral soft wrist mittens are in placed, skin is warm to touch and circulation is check. Linton cath is intact and draining yellow urine 950 ml. Wound care provided as ordered. Kept Pt clean, dry and comfortable. All needs met and attended. Safety precautions is maintained. Bed at low position, brakes locked, HOB elevated, side rails upX3 and call light is within reach. Will endorse to morning nurse for WES.
[2020-03-22 07:48] LABS: BASOPHILS # (AUTO) 0.1 /CMM (0.0-0.2); BASOPHILS % (AUTO) 0.4 % (0.0-2.0); EOSINOPHILS % (AUTO) 0.6 % (0.0-6.0); HEMATOCRIT 43 % (39-51); HEMOGLOBIN 13.4 g/dL (13.5-17.5); LYMPHOCYTES # (AUTO) 1.6 /CMM (0.8-4.8); LYMPHOCYTES % (AUTO) 11.2 % (20.0-44.0); MEAN CORPUSCULAR HGB CONC 31 g/dl (31.0-36.0); MEAN CORPUSCULAR VOLUME 92 fL (80-96); MONOCYTES # (AUTO) 0.9 /CMM (0.1-1.30); MONOCYTES % (AUTO) 6.6 % (2.0-12.0); NEUTROPHILS # (AUTO) 11.6 /CMM (1.8-8.9); NEUTROPHILS % (AUTO) 81.2 % (43.0-81.0); PLATELET COUNT (AUTO) 207 /CMM (150-450); RED BLOOD CELL COUNT(AUTO) 4.63 MIL/uL (4.5-6.0); WHITE BLOOD COUNT (AUTO) 14.3 K/uL (4.3-11.0)
--- NOTE | 2020-03-22 07:59 | NUR ---
STAFF PHYSICAL THERAPY ASSISTANT OPEN SHIFT NOTES RECEIVED PATIENT RESTING IN BED, A/O X 1, MUMBLING, NO SIGN OF PAIN, ON RA WITH EVEN UNLABORED BREATHS NO SIGNS OF ACUTE RESPIRATORY DISTRESS NOTES, NGT IN PLACE, IV TO LUBNA MIDLINE #18 G INFUSING WELL, REPOSITIONED FOR COMFORT, RUBIN WITH CLEAR YELLOW OUTPUT, PATIENT ON TELE MONITOR WITH NSR @95-100 BPM BED AT LOWEST POSITION LOCKED WITH SIDE RAILS UP X2 AND CALL LIGHT WITH IN REACH. WILL CONTINUE TO MONITOR PATIENT AND ANTICIPATE NEEDS.
[2020-03-22 08:00] VITALS: BP 106/73
[2020-03-22 08:04] LABS: CALCIUM, SERUM 8.9 mg/dL (8.5-10.1); PHOSPHORUS 2.4 mg/dL (2.5-4.9); POTASSIUM 3.4 mmol/L (3.5-5.1)
[2020-03-22] MEDS: PANTOPRAZOLE 40 MG/PACK PACK PO SCH (08:24)
[2020-03-22] MEDS: ENSURE ENLIVE CHOC 237 ML CAN PO SCH ×2 (08:25→11:45)
[2020-03-22] MEDS: ENOXAPARIN SODIUM 40 MG/0.4 ML DISP.SYRIN SQ SCH (08:32)
[2020-03-22 08:38] VITALS: BP 104/73
[2020-03-22] MEDS: CARVEDILOL 3.125 MG TABLET PO SCH (08:38)
[2020-03-22] MEDS: ASPIRIN 81 MG TAB.CHEW PO SCH (08:38)
[2020-03-22] MEDS: FOLIC ACID 1 MG TABLET PO SCH (08:39)
[2020-03-22] MEDS: THIAMINE HCL 100 MG TABLET PO SCH (08:39)
[2020-03-22] MEDS: ATORVASTATIN 10 MG TABLET PO SCH (08:39)
[2020-03-22] MEDS: TAMSULOSIN 0.4 MG CAP.SR.24H PO SCH (08:39)
[2020-03-22] MEDS: HYDROGEL DRESSING 90 GM TUBE TP SCH (08:40)
[2020-03-22] MEDS: Z GUARD REMEDY 2 OZ OINT TP SCH (08:42)
--- NOTE | 2020-03-22 11:30 | NUR ---
Patient is alert and oriented x1, patient mumbling, patient asking who is there but not registering that he is at the hospital. Per case management note, patient's bed is being held at [facility] in [place] . to call [facility] and attempt to find family contact.
--- NOTE | 2020-03-22 11:37 | NUR ---
This SW contacted Terri at [facility] per Terri patient does not have any family member. Terri stating that the patient can return to [facility] when the patient is medically cleared. Per Terri, please call to arrange discharge plan. SW to arrange with Case Management.
[2020-03-22] MEDS ORDERED: Thiamine HCL PO (13:17)
[2020-03-22] MEDS ORDERED: AMPI1VIA6 IJ (13:17)
[2020-03-22] MEDS ORDERED: K PHOS NEUTRAL 250 MG TABLET PO ONE (15:30)
--- NOTE | 2020-03-22 17:51 | NUR ---
RN MS NOTES PT IN BED, AWAKE, ALERT TO SELF, VERBALLY RESPONSIVE, NO SIGN OF PAIN, NOT IN DISTRESS, SEEN BY DR. VENEGAS, DISCHARGE ORDER GIVEN, PT INFORMED, PER , D/C NGSoco AND CARYN, REPORT GIVEN TO [facility] OF [facility], SKIN ASSESSMENT AND PHOTOS DONE, BELONGINGS ACCOUNTED FOR, PICKED UP BY 2 AMBULANCE PERSONNEL, LEFT VIA GUERNEY IN STABLE CONDITION.
== END 2020-03-22 18:00 | DRG 871 ==
LOC: ER 23:22 → TELE2 03-11 02:27 → MED 03-14 16:48 → TELE 03-14 17:36
PROVIDERS: ADMIT Nurse Practitioner Acute Care; ATTEND Nurse Practitioner Acute Care
PROC: 05HY33Z Insertion of Infusion Device into Upper Vein, Percutaneous Approach (ICD-10-PCS; principal; 2020-03-20)
DX: A41.9 Sepsis, unspecified organism (principal); L89.153 Pressure ulcer of sacral region, stage 3; N17.0 Acute kidney failure with tubular necrosis; G93.41 Metabolic encephalopathy; N39.0 Urinary tract infection, site not specified; I13.0 Hypertensive heart and chronic kidney disease with heart failure and stage 1 through stage 4 chronic kidney disease, or unspecified chronic kidney disease; I50.42 Chronic combined systolic (congestive) and diastolic (congestive) heart failure; F10.231 Alcohol dependence with withdrawal delirium; E87.2 Acidosis; D68.9 Coagulation defect, unspecified; I42.9 Cardiomyopathy, unspecified; E87.1 Hypo-osmolality and hyponatremia; N18.9 Chronic kidney disease, unspecified; N40.0 Benign prostatic hyperplasia without lower urinary tract symptoms; Z86.711 Personal history of pulmonary embolism; Z91.14 Patient's other noncompliance with medication regimen; Z91.19 Patient's noncompliance with other medical treatment and regimen; F20.9 Schizophrenia, unspecified; E78.5 Hyperlipidemia, unspecified; E86.0 Dehydration; E83.39 Other disorders of phosphorus metabolism; E80.6 Other disorders of bilirubin metabolism; Z59.0 Homelessness; Z79.01 Long term (current) use of anticoagulants; E83.42 Hypomagnesemia; E87.6 Hypokalemia; F31.9 Bipolar disorder, unspecified; F17.200 Nicotine dependence, unspecified, uncomplicated; B95.2 Enterococcus as the cause of diseases classified elsewhere; F10.20 Alcohol dependence, uncomplicated; Y90.9 Presence of alcohol in blood, level not specified; F39 Unspecified mood [affective] disorder; R62.7 Adult failure to thrive; R13.10 Dysphagia, unspecified
CPT/HCPCS: 36415; 70450-TC; 71045-TC; 76770-TC; 80048-TC; 80053-TC; 80061-TC; 80076-TC; 80305; 81000-TC; 82140-TC; 82565-TC; 82570-TC; 83605-TC; 83735-TC; 83935-TC; 84100-TC; 84155-TC; 84300-TC; 84443-TC; 84484-TC; 85025-TC; 85730-TC; 87081-TC; 87086-TC; 87186-TC; 92526; 92611-TC; A4349; A6248; A6403; C9113; G0378; G0480; J0290; J1650; J2060; J2543; J3475; J3480; J3490; J7030; J7042; J7050; J7060; J7070; U0003-CS